=== PATIENT | female | born 1975 | race Caucasian/White ===

== ENCOUNTER 2016-11-29 07:44 | Emergency (ER) | payer BC ==
[2016-11-29 07:53] VITALS: TEMP 97.9
[2016-11-29] MEDS ORDERED: HYDROmorphone 1 MG/ML 1 ML SYRINGE IVP STA ×3 (08:11→11:41)
[2016-11-29] MEDS ORDERED: ONDANSETRON 4 MG/2 ML VIAL IVP STA (08:11)
[2016-11-29] MEDS ORDERED: KETOROLAC 60 MG/2 ML VIAL IVP STA (08:11)
--- NOTE | 2016-11-29 08:19 | ED ---
General Adult HPI - General Chief complaint: Back Pain/Injury Stated complaint: LEG AND BACK PAIN Time Seen by Provider: 11/29/16 07:50 Source: patient, RN notes reviewed Mode of arrival: ambulatory - History of Present Illness Initial comments: This is a 41-year-old female comes into the emergency room complaining about right-sided lower back pain that radiates all the down her leg into her foot. Patient states her foot is also very tingly. Patient states this started 2 weeks ago and she wasn't doing anything that would cause the pain she wasn't doing any lifting or new exercises. Patient states this happened many years ago and it was called sciatica. Patient states she's had no recent injury or trauma to that area. Patient states she's had no urinary incontinence or retention. Patient denies any numbness of the perineum area. Patient denies any weakness of the leg. Patient states her foot is tingly but she has complete sensation. Patient denies any recent fevers. Patient denies any recent procedures that were done on her. Patient states standing seems to make the pain worse or lying completely flat the problem with lying completely flat however is she cannot stand up - Related Data Home Medications Medication Instructions Recorded Confirmed Loratadine [Claritin] 10 mg PO DAILY 11/29/16 11/29/16 Previous Rx's Medication Instructions Recorded Hydrocodone/Acetaminophen [[place] 1 each PO Q4HR PRN #20 tab 11/29/16 5-325] predniSONE 40 mg PO DAILY #8 tab 11/29/16 Allergies Allergy/AdvReac Type Severity Reaction Status Date / Time Penicillins Allergy Rash/Hives Verified 11/29/16 07:55 Review of Systems ROS Statement: Those systems with pertinent positive or pertinent negative responses have been documented in the HPI. ROS Other: All systems not noted in ROS Statement are negative. Past Medical History Past Medical History: No Reported History History of Any Multi-Drug Resistant Organisms: None Reported Additional Past Surgical History / Comment(s): cyst removed from "tailbone" Past Psychological History: No Psychological Hx Reported Smoking Status: Former smoker Past Alcohol Use History: None Reported Past Drug Use History: None Reported General Exam - General Exam Comments Initial Comments: GENERAL: Patient is well-developed and well-nourished. Patient is nontoxic and well- hydrated and is in moderate distress. ENT: Neck is soft and supple. No significant lymphadenopathy is noted. Oropharynx is clear. Moist mucous membranes. Neck has full range of motion without eliciting any pain. EYES: The sclera were anicteric and conjunctiva were pink and moist. Extraocular movements were intact and pupils were equal round and reactive to light. Eyelids were unremarkable. PULMONARY: Unlabored respirations. Good breath sounds bilaterally. No audible rales rhonchi or wheezing was noted. CARDIOVASCULAR: There is a regular rate and rhythm without any murmurs gallops or rubs. ABDOMEN: Soft and nontender with normal bowel sounds. No palpable organomegaly was noted. There is no palpable pulsatile mass. SKIN: Skin is clear with no lesions or rashes and otherwise unremarkable. NEUROLOGIC: Patient is alert and oriented x3. Cranial nerves II through XII are grossly intact. Motor and sensory are also intact. Normal speech, volume and content. Symmetrical smile. Patient has straight leg test positive on the right at about 30. Perineum exam has normal sensation MUSCULOSKELETAL: Normal extremities with adequate strength and full range of motion. No lower extremity swelling or edema. No calf tenderness. LYMPHATICS: No significant lymphadenopathy is noted PSYCHIATRIC: Normal psychiatric evaluation. Course Vital Signs 11/29/16 11/29/16 07:48 10:43 Temperature 97.9 F Pulse Rate 104 H 68 Respiratory 18 14 Rate Blood Pressure 188/91 134/76 O2 Sat by Pulse 99 94 L Oximetry Medical Decision Making - Medical Decision Making Computed tomography scan shows some mild disc protrusion but no impingement upon the spinal cord or nerves. Patient received pain medicine emergency department and was feeling better did not pain-free. Disposition Clinical Impression: Sciatica Disposition: HOME SELF-CARE Instructions: Sciatica (ED) Prescriptions: Hydrocodone/Acetaminophen [[place] 5-325] 1 each PO Q4HR PRN #20 tab PRN Reason: Pain predniSONE 40 mg PO DAILY #8 tab Referrals: None,Stated [Primary Care Provider] - 1-2 days
[2016-11-29] MEDS ORDERED: methylPREDNISolone SOD SUCCI 125 MG/2 ML VIAL IV STA (08:20)
--- NOTE | 2016-11-29 09:26 | XR ---
EXAMINATION TYPE: XR lumbar spine 2 or 3V DATE OF EXAM: 11/29/2016 8:50 AM COMPARISON: NONE HISTORY: Back pain 2 weeks TECHNIQUE: 3 view lumbar spine FINDINGS: 5 lumbar-type vertebral bodies are present. Pedicles are intact. Disc height and vertebral body heights are preserved. IMPRESSION: Normal three-view lumbar spine
--- NOTE | 2016-11-29 10:33 | CT ---
EXAMINATION TYPE: CT lumbar spine wo con DATE OF EXAM: 11/29/2016 10:23 AM COMPARISON: NONE HISTORY: low back pain and Lt leg pain CT DLP: 1194.5 mGycm CONTRAST: None TECHNIQUE: CT of the lumbar spine is performed on a spiral scan at 3 mm thick sections. Reconstructed images are performed in the coronal and sagittal planes. FINDINGS: T12-L1: No focal disc herniation or significant disc bulge is evident. No spinal canal stenosis or neural foraminal stenosis is present. L1-L2: No focal disc herniation or significant disc bulge is evident. No spinal canal stenosis or n eural foraminal stenosis is present L2-L3: Mild disc bulging is anterior thecal sac flattening. No AP spinal canal stenosis is present. N eural foramen are patent. L3-L4: Minimal disc bulging with anterior thecal sac contact. No AP spinal canal stenosis or neural f oraminal stenosis is present. L4-L5: Mild disc bulging is anterior thecal sac flattening. No AP spinal canal stenosis or neural for aminal stenosis is present. L5-S1: No focal disc herniation or significant disc bulge is evident. No spinal canal stenosis or n eural foraminal stenosis is present Vertebral alignment appears normal. IMPRESSION: Mild disc bulging mid lumbar spine with mild anterior thecal sac compression. No nerve root impingeme nt or spinal canal stenosis is evident.
[2016-11-29 13:08] VITALS: BP 138/79; PULSE 75; RESP 18
== END 2016-11-29 13:05 | disposition home or self-care (01) ==
LOC: EC 07:44
DX: M54.30 Sciatica, unspecified side (principal); Z79.899 Other long term (current) drug therapy; Z88.0 Allergy status to penicillin; Z87.891 Personal history of nicotine dependence
CPT/HCPCS: 72100; 72131; 96374; 96376; 96375 ×3; 99284; J2930; J2405; J1885; J1170

== ENCOUNTER → 2017-01-15 | Outpatient (CLI) | payer BC ==
[2017-01-15 13:05] VITALS: BP 148/96; RESP 18; TEMP 98
[2017-01-15 13:31] VITALS: PULSE 98
--- NOTE | 2017-01-15 13:59 | P.CONS ---
History of Present Illness - Reason for Consult Consult date: 01/15/17 - History of Present Illness The initial consultation visit for this 41 years old female with 2 month history of severe low back pain with radiation to the right lower extremity, associated with numbness and tingling sensation, she reported the pain started after she was doing exercise at home, and she denies any history of heavy lifting or accident, the pain started to the low back area radicular the right buttock and then goes to the right lower extremity associated with numbness and tingling sensation , she feels that her right lower extremity weaker than the left, she tried multiple medications without any significant benefit, and she started recently on physical therapy and she can only 4 sessions of physical therapy, she uses NSAIDs and [place] hasn't tried massage, chiropractors without any benefit, she denies any fever or night sweats, Past Medical History Past Medical History: No Reported History History of Any Multi-Drug Resistant Organisms: None Reported Additional Past Surgical History / Comment(s): cyst removed from "tailbone" Past Psychological History: No Psychological Hx Reported Smoking Status: Former smoker Past Alcohol Use History: None Reported Past Drug Use History: None Reported Medications and Allergies Home Medications Medication Instructions Recorded Confirmed Type Loratadine [Claritin] 10 mg PO DAILY 11/29/16 11/29/16 History Gabapentin [Neurontin] 100 mg PO Q8HR 01/15/17 01/15/17 History Ibuprofen [Motrin] 800 mg PO Q8HR PRN 01/15/17 01/15/17 History Stool Softener 1 tab PO DAILY 01/15/17 History oxyCODONE ER [OxyCONTIN] 15 mg PO Q6HR PRN 01/15/17 01/15/17 History Allergies Allergy/AdvReac Type Severity Reaction Status Date / Time Penicillins Allergy Rash/Hives Verified 01/15/17 12:37 Physical Exam Vitals: Vital Signs Temp Pulse Resp BP 01/15/17 12:55 98.0 F 98 18 148/96 Intake and Output 01/14/17 01/15/17 01/15/17 22:59 06:59 14:59 Other: Weight 110.677 kg Patient Weight 01/16/17 06:59 Weight 110.677 kg Social history : not smoker , NO ETOH , NO Illegal drugs use . Review of Systems : 1- Constitutional : no chills , no fever , no night sweats , 2- Ears : no ear discharge , no change in hearing 3-Nose, Mouth ,Throat ; no bleeding gums, no sore throat , no epistaxis , 4-Cardiovascular : Denies chest pain, , no orthopnea , no palpitation 5-Respiratory : Denies cough , no dyspnea , no hemoptysis 6-Gastrointestinal :, no change in bowel habits , no coffee- ground emesis . 7-Genitourinary : No hematuria , no discharge , no incontinence, 8-Musculoskeletal : No gait dysfunction , report low back pain , 9- Neurological : no ataxia , no tremor , no sezure , 10-Psychatric , no suicidal ideation no hallucination 11- Endocrine : no cold intolerence , no polyuria , no polydypsia , 12-Hematologic : no easy bleeding , no easy brusing , 13-Allergic / immunology : no angioedema , no wheezing ,no allergic rhinitis 14-Integumentary : no brttle nails , no change hair / nails , no foot/leg ulcers . Physical Examinations : 1-Constitutional : Cooperative , not in acute distress . 2-HEENT : nech ; supple , no Lymphadenopathy , no Thyromegaly , :eyes , no icterus, no photophobia . ENT : , normal oropharynx , no Thrush 3- Respiratory : Chest clear to auscultations Bilaterally , no wheezing . 4- Cardiovascular : regular rate and rhythem , S1 , S2 , no S3 , no S4. 5- Gastrointestinal: abdomen soft no tenderness , no organomegally . 6- Genitourinary : Defferred . 7-Integumentary : No cellulitis , no ulcers , normal skin turgor , no cyanotic . 8- neurologic : Cranial nerve II to XII intact , no focal neurological deffecit 9-psychatric : alert , oriented X 3 , appropriate affect , intact judgment and insight . 10-Lymphatic : no Lymphadenopathy. 11- musculoskeltal: Antalgic gait exams of the Lumber spine = moter stegnth lower extremities , thigh and legs 3-4/5 Right side , 5/5 Left side deep tendon reflexes : Decreased right Knee Jerk , normal ankle Jerk negative lumber facet Loading Test Range of motion of the lumbar spine Flexion 30 degrees, extension 30 degrees strait leg raising test , positive at 30 degree on the right side ,and its negative on the left side Fabere test positive RT and negative LT . Results Comments: CT Scan of the lumbar spine= mild bulging disc disease at L2-3/L3/L4 5 Assessment and Plan Plan: Assessment and plan = - Lumbar radiculopathy/ lumbar bulging disc disease - diagnoses, prognosis, and treatment options including but not limited to physical therapy, surgical interventions, interventional therapies and medication management including narcotics and adjuvant medication were discussed with the patient and all questions answered to the patient's satisfaction. -medication refile =1-start patient on Motrin 800 mg every 8 hours when necessary for pain 2-start patient on Neurontin 100 mg every 8 hours for 1 week and then it will be increased to 200 mg every 8 hours after 1 week, patient should continue oxycodone 15 mg every 6 hours she is already getting prescription for it from her primary care doctor Nate -procedure= patient could benefit from lumbar epidural steroid injections under fluoroscopy guidance right paramedian approach. Time with Patient: Greater than 30
== END | disposition home or self-care (01) ==
LOC: PNWHC3 12:20
PROVIDERS: ATTEND Specialist
DX: M51.16 Intervertebral disc disorders with radiculopathy, lumbar region (principal); M54.31 Sciatica, right side
CPT/HCPCS: 99211

== ENCOUNTER 2017-01-17 08:21 | Day surgery (SDC) | payer BC ==
[2017-01-16 11:11] VITALS: BMI 40.6
[2017-01-17 08:41] VITALS: RESP 16; TEMP 97.5
[2017-01-17] MEDS ORDERED: LACTATED RINGERS 1,000 ML IV ONE (09:09)
[2017-01-17] MEDS ORDERED: IOHEXOL 180 MG/ML 1 ML ML ONE (09:10)
[2017-01-17] MEDS ORDERED: MIDAZOLAM 2 MG/2 ML VIAL ONE (09:10)
[2017-01-17] MEDS ORDERED: TRIAMCINOLONE ACETONIDE 40 MG/ML 1 ML VIAL ONE (09:10)
[2017-01-17] MEDS ORDERED: fentaNYL (PF) 50 MCG/ML 2 ML AMP ONE (09:10)
--- NOTE | 2017-01-17 09:44 | P.PCN ---
Date of Procedure: 01/17/17 Procedure(s) Performed: PREOPERATIVE DIAGNOSIS: 1- Lumbar herniated/bulging Disc Diseases 2-Lumbar Radiculopathy POSTOPERATIVE DIAGNOSIS: 1-Lumber herniated/bulging Disc Diseases 2-Lumbar Radiculopathy PROCEDURE 1. Lumbar epidural steroid injection under fluoroscopic guidance at the L4-5 level. (Right paramedian approach) 2. Lumbar epidurogram. ANESTHESIA: Local with 1% lidocaine 3 ml and IV sedation with Versed 4 mg , and fentanyle 100 Mcg EBL: Minimal PROCEDURE INDICATION: The patient with low back pain and radiculitis symptoms unresponsive to conservative treatment. Fluoroscopy was used to optimize visualization of the needle placement and to maximize safety. PROCEDURE DESCRIPTION / TECHNIQUE: The patient was seen and identified in the preoperative area. Risks, benefits , complications including but not limited to infections ,bleeding ,allergic reaction to the medications ,nerve damage and not complete pain releife , and alternatives were discussed with the patient. The patient agreed to proceed with the procedure and signed the consent. IV was started, and vital signs were stable. Patient was taken to the OR and time out was completed. The patient was placed in the prone position on procedure table and a pillow was placed under the abdomen to reduce lumbar lordosis. The lumbosacral area was prepped and draped in the usual sterile fashion.ere closely monitored during the procedure. Conscious sedation was used during the procedure to decrease patients anxiety. Vital signs was monitered during the entire procedure. Using anterior-posterior fluoroscopy, the L4-5 interlaminar space was identified and the skin over this site was marked and then infiltrated with 1% lidocaine subcutaneously. Subsequently, a 18-gauge Tuohy epidural needle was inserted and advanced toward the epidural space using the ``Loss of resistance technique and guided by AP and lateral fluoroscopy. The correct needle position in the epidural space was verified with the injection of 2 mL of the water soluble contrast dye Omnipaque 180 contrast and observing an excellent epidurogram with the epidural spread of the dye, after negative aspiration for blood and CSF and in the absence of paresthesias. Again after negative aspiration, a 6 ml mixture containing 80 mg of Kenalog and 2 ml of preservative free Normal Saline, and 2 ml of preservative free lidocaine 1% solution was injected and a washout of epidurogram was seen. Needle was withdrawn intact, skin was cleansed, and bandages were applied. COMPLICATIONS: None DISPOSITION / PLANS: The patient was placed in a supine position and transferred to the recovery area in a stable condition for observation. There was no evidence of lower extremity motor or sensory deficit after the procedure. Patient was discharged from the recovery room after meeting discharge criteria. Home discharge instructions were given to the patient by the staff. The patient was reexamined prior to discharge. The patient will schedule a follow up in the clinic in 2-4 weeks.
[2017-01-17 10:02] VITALS: BP 135/84; PULSE 72
[2017-01-17] MEDS ORDERED: IV FLUID CONTINUATION 1,000 ML IV ONE (10:02)
--- NOTE | 2017-01-17 13:14 | FL ---
EXAMINATION TYPE: FL guided pain mgmt statistic DATE OF EXAM: 01/17/2017 9:42 AM FLUOROSCOPY Fluoroscopy time of 6 seconds was used during lumbar epidural steroid injection. 1 image/s document/ s the procedure.
== END 2017-01-17 10:09 | disposition home or self-care (01) ==
LOC: ORPAIN 08:21
PROVIDERS: ATTEND Specialist
DX: M51.16 Intervertebral disc disorders with radiculopathy, lumbar region (principal)
CPT/HCPCS: 81025; 62323; 99152; J2250; J3301; Q9965; J3010

== ENCOUNTER 2017-02-21 06:15 | Day surgery (SDC) | payer BC ==
[2017-02-20 08:35] VITALS: BMI 39.9
[~2017-02-21 06:15] MED LIST: LACTATED RINGERS 1,000 ML IV SCH
[2017-02-21 06:53] VITALS: RESP 16; TEMP 96.4
[2017-02-21] MEDS ORDERED: LIDOCAINE 1% 20 ML VIAL (10MG/ML) FOR IV START SQ ONE (07:06)
[2017-02-21] MEDS ORDERED: IOHEXOL 180 MG/ML 1 ML ML ONE (07:41)
[2017-02-21] MEDS ORDERED: TRIAMCINOLONE ACETONIDE 40 MG/ML 1 ML VIAL ONE (07:41)
[2017-02-21] MEDS ORDERED: fentaNYL (PF) 50 MCG/ML 2 ML AMP ONE (07:41)
[2017-02-21] MEDS ORDERED: MIDAZOLAM 2 MG/2 ML VIAL ONE (07:41)
--- NOTE | 2017-02-21 08:10 | P.PCN ---
Date of Procedure: 02/21/17 Procedure(s) Performed: PREOPERATIVE DIAGNOSIS: 1- Lumbar her Disc Diseases 2-Lumbar radiculopathy POSTOPERATIVE DIAGNOSIS: 1-Lumber herniated Disc Diseases 2-Lumbar radiculopathy PROCEDURE 1. Lumbar epidural steroid injection under fluoroscopic guidance at the L4-5 level. 2. Lumbar epidurogram. ANESTHESIA: Local with 1% lidocaine 3 ml and IV sedation with Versed 2 mg , and fentanyle 100 Mcg EBL: Minimal PROCEDURE INDICATION: The patient with low back pain and radiculitis symptoms unresponsive to conservative treatment. Fluoroscopy was used to optimize visualization of the needle placement and to maximize safety. PROCEDURE DESCRIPTION / TECHNIQUE: The patient was seen and identified in the preoperative area. Risks, benefits , complications including but not limited to infections ,bleeding ,allergic reaction to the medications ,nerve damage and not complete pain releife , and alternatives were discussed with the patient. The patient agreed to proceed with the procedure and signed the consent. IV was started, and vital signs were stable. Patient was taken to the OR and time out was completed. The patient was placed in the prone position on procedure table and a pillow was placed under the abdomen to reduce lumbar lordosis. The lumbosacral area was prepped and draped in the usual sterile fashion.ere closely monitored during the procedure. Conscious sedation was used during the procedure to decrease patients anxiety. Vital signs was monitered during the entire procedure. Using anterior-posterior fluoroscopy, the L4-5 interlaminar space was identified and the skin over this site was marked and then infiltrated with 1% lidocaine subcutaneously. Subsequently, a 20-gauge Tuohy epidural needle was inserted and advanced toward the epidural space using the ``Loss of resistance technique and guided by AP and lateral fluoroscopy. The correct needle position in the epidural space was verified with the injection of 2 mL of the water soluble contrast dye Omnipaque 180 contrast and observing an excellent epidurogram with the epidural spread of the dye, after negative aspiration for blood and CSF and in the absence of paresthesias. Again after negative aspiration, a 6 ml mixture containing 80 mg of Kenalog and 2 ml of preservative free Normal Saline, and 2 ml of preservative free lidocaine 1% solution was injected and a washout of epidurogram was seen. Needle was withdrawn intact, skin was cleansed, and bandages were applied. COMPLICATIONS: None DISPOSITION / PLANS: The patient was placed in a supine position and transferred to the recovery area in a stable condition for observation. There was no evidence of lower extremity motor or sensory deficit after the procedure. Patient was discharged from the recovery room after meeting discharge criteria. Home discharge instructions were given to the patient by the staff. The patient was reexamined prior to discharge. The patient will schedule a follow up in the clinic in 2-4 weeks. Patient given prescription refills for Neurontin 200 mg every 8 hours Motrin 800 mg every 8 hours when necessary for pain, and also patient started on Ultram 50 mg every 8 hours when necessary for pain and he will be started on baclofen 10 mg twice a day for muscle spasm
[2017-02-21] MEDS ORDERED: IV FLUID CONTINUATION 1,000 ML IV ONE ×2 (08:15)
--- NOTE | 2017-02-21 08:20 | FL ---
Fluoroscopy HISTORY: Pain 3 seconds fluoroscopy time supplied to the referring clinician. 2 intraoperative C-arm images docume nt the procedure. See dictated report from anesthesia.
[2017-02-21 08:32] VITALS: BP 122/76; PULSE 89
== END 2017-02-21 08:45 | disposition home or self-care (01) ==
LOC: ORPAIN 06:15
PROVIDERS: ATTEND Specialist
DX: M51.16 Intervertebral disc disorders with radiculopathy, lumbar region (principal); Z88.0 Allergy status to penicillin
CPT/HCPCS: 99152; 62323; J2250; J3301; Q9965; J3010

== ENCOUNTER → 2017-04-15 | Outpatient (CLI) | payer BC ==
[2017-04-15 14:42] VITALS: BP 146/94; PULSE 108; RESP 16; TEMP 98.2
--- NOTE | 2017-04-15 15:19 | P.PN ---
Subjective This is follow-up visit for this patient with a history of severe and chronic low back pain secondary to lumbar Herniated disc diseases , lumbar radiculopathy, we have done interventional pain management injection,, number epidural steroid injections 2 , and she reports her pain improved but she continued to have severe low back pain with radiation to the right lower extremity associated with numbness and tingling sensation, she is currently on Neurontin 100 mg 2 tablets every 8 hours , Motrin 800 mg every 8 hours and Ultram 50 mg every 8 hours when necessary, and baclofen 10 mg twice a day, she denies any excessive drowsiness or sleepiness, she denies any fever or night sweats she denies any motor or sensory deficit, but she reported that since she started the Neurontin she realizes that there is swelling in her lower extremity , Objective - Vital Signs Vital signs: Vital Signs Temp 98.2 F 04/15/17 14:30 Pulse 108 H 04/15/17 14:30 Resp 16 04/15/17 14:30 BP 146/94 04/15/17 14:30 Pulse Ox Intake & Output 04/14/17 04/15/17 04/15/17 18:59 06:59 18:59 Weight 108.862 kg - Exam Physical Examinations : 1-Constitutiona : Cooperative , not in acute distress . 2-HEENT : nech ; supple , no Lymphadenopathy , normal thyroid size . eyes : no ptosis , no icterus, no photophobia . ENT : normal of hearing , normal oropharynx , no Thrush . 3- Respiratory : Chest clear to auscultations Bilaterally , no wheezing , no Rhonchi . 4- Cardiovascular : regular rate and rhythem , S1 , S2 , no S3 , no S4. 5- Gastrointestinal : abdomen soft no tenderness , bowel sounds positive all four quadrents , no organomegally . 6- Genitourinary : Defferred . 7- neurologic : Cranial nerve II to XII intact , no focal neurological deffecit . 8-psychatric : alert , oriented X 3 , appropriate affect , intact judgment and insight . 9-Lymphatic : no Lymphadenopathy . 10- musculoskeltal : , Lumber spine = normal moter stegnth lower extremities ,thigh and legs .5/5 left , 4/5 right deep tendon reflexes : normal Knee Jerk , normal ankle Jerk . lumber facet Loading Test negative bilaterally strait leg raising test positive at 30 degree , RT , negative LT , Fabere test positive RT and negative LT . Assessment and Plan Plan: Assessment and plan= - lumbar herniated disc disease , lumbar radiculopathy Pain improved after the lumbar epidural steroid injections, and could benefit from another lumbar epidural steroid injections. Patient had side effects from Neurontin (swelling in her feet ) I will start patient on Lyrica 25 mg 3 times a day, discontinue Neurontin, continue Motrin 800 mg every 8 hours continue 50 mg every 8 hours when necessary , continue baclofen 10 mg twice a day Time with Patient: Less than 30
== END ==
LOC: PNWHC3 14:01
PROVIDERS: ATTEND Specialist
DX: M51.16 Intervertebral disc disorders with radiculopathy, lumbar region (principal); G89.29 Other chronic pain; Z79.891 Long term (current) use of opiate analgesic
CPT/HCPCS: 99211

== ENCOUNTER 2017-05-27 06:49 | Day surgery (SDC) | payer BC ==
[2017-05-27 07:32] VITALS: TEMP 98
[2017-05-27] MEDS ORDERED: LACTATED RINGERS 1,000 ML IV ONE (07:42)
[2017-05-27] MEDS ORDERED: LIDOCAINE 1% 20 ML VIAL (10MG/ML) FOR IV START INTRADERMA ONE (07:43)
[2017-05-27 07:52] LABS: Glucose,Whole Blood 120 mg/dL (75-99)
[2017-05-27] MEDS ORDERED: IV FLUID CONTINUATION 1,000 ML IV ONE (08:03)
--- NOTE | 2017-05-27 08:04 | P.PCN ---
Date of Procedure: 05/27/17 Preoperative Diagnosis: Lumbar Radiculopathy Postoperative Diagnosis: Same As above Procedure(s) Performed: Lumbar epidural steroid injection under fluoroscopic guidance in the interlaminar approach Implants: Anesthesia: other (Moderate sedation) Surgeon: Fercho Bruno Pathology: none sent Condition: stable Disposition: PACU Indications for Procedure: Operative Findings: Description of Procedure: The patient was seen in the preop holding area consent was obtained then she was brought into the procedure room and placed in prone position. Skin was prepped with Betadine 3 and draped in a sterile manner. Lidocaine 1% was used to numb the skin up at the target point that was at the L4-5 level in the right paramedian approach. I used a 20-gauge 3-1/2 inch Touhy epidural needle with [id number] to air to identify the epidural space. There was positive [id number] to air at about 9 cm from skin negative aspiration for any CSF or blood and negative paresthesia I then injected 1 mL of Omnipaque which showed typical epidurogram with AP and lateral views of fluoroscopy after that I injected 40 mg of Kenalog +2 MLS of Marcaine 0.25% plus preservative free normal saline to a total volume of 7 MLS in epidural space. Patient tolerated procedure well.
[2017-05-27 08:08] VITALS: PULSE 86; RESP 16
--- NOTE | 2017-05-27 08:08 | FL ---
FLUOROSCOPY 4 seconds of fluoroscopy time were utilized during Pain Injection. 2 images document the procedure.
[2017-05-27 08:26] VITALS: BP 120/83
== END 2017-05-27 08:51 | disposition home or self-care (01) ==
LOC: ORPAIN 06:49
PROVIDERS: ATTEND Anesthesiology
DX: M54.16 Radiculopathy, lumbar region (principal); Z79.1 Long term (current) use of non-steroidal anti-inflammatories (NSAID); Z79.891 Long term (current) use of opiate analgesic; Z88.0 Allergy status to penicillin
CPT/HCPCS: 81025; 62323; J2250; J3301; Q9965; J3010; 99152

== ENCOUNTER → 2017-06-05 | Outpatient (CLI) | payer BC ==
[2017-06-05 12:56] VITALS: BP 134/83; PULSE 93; RESP 16; TEMP 97.2
--- NOTE | 2017-06-05 13:12 | P.PN ---
Progress Note - Text This is a 41-year-old female with history of lumbar radiculopathy. The patient just finished a series of 3 lumbar epidural steroid injections and her pain is 90% better than before these injections as she states. She still has very slight pain in the back of her left thigh ,burning in quality. She takes Cymbalta 30 mg once a day and Motrin 800 mg once to twice a day for her pain now. I will give her prescription for these 2 medications and we'll see her 3 months from now.
== END | disposition home or self-care (01) ==
LOC: PNWHC3 12:39
PROVIDERS: ATTEND Anesthesiology
DX: M54.16 Radiculopathy, lumbar region (principal)
CPT/HCPCS: 99211

== ENCOUNTER → 2017-11-20 | Outpatient (CLI) | payer BC ==
[2017-11-20 13:16] VITALS: BP 131/94; PULSE 89; RESP 18; TEMP 98.7
--- NOTE | 2017-11-20 13:38 | P.PN ---
Progress Note - Text Progress Note Date: 11/20/17 Patient returns for followup for chronic back pain with radiation to legs. Patient recently underwent LESI series over the summer and pain is still at 1-2/ 10 with medications, including rare tramadol, baclofen, ibuprofen, duloxetine regimen. Patient denies adverse drug effects from medications. Today, pt denies new-onset weakness, bowel/bladder incontinence, or any other signs or symptoms of cauda equina syndrome. There are no signs of acute intoxication, and no indications of medication diversion or overuse. In addition to above, 13-point review of systems is also negative for chest pain , shortness of breath, changes in vision, changes in hearing, new onset weakness , abdominal pain, diarrhea, extreme fatigue, malaise, fever, skin changes, homicidal or suicidal ideation, or bowel or bladder incontinence. Vital Signs: Reviewed in EMR Gen: WDWN, AAOx3, NAD HEENT: NCAT, EOMI, hearing grossly normal Pulm: resp unlabored Abd: soft, NT, ND Neck: supple, trachea midline ROM in flexion lumbar spine: reduced ROM in extension lumbar spine: reduced Lumbar paravertebral tenderness: + Facet loading: + bilateral SI joint tenderness: + R > L Francisco's test: + R > L Straight leg raise: neg Lower extremity: decreased ROM dorsiflexion/plantarflexion strength, hip flexion/extension, and knee flexion/extension secondary to pain Neuro: CN II-XII grossly intact, muscle strength lower extremities PRESERVED Imaging: Reviewed in EMR Assessment: 1. lumbar radiculitis 2. chronic pain syndrome Plan: 1. Explanation: Opioid and psychological risk scores were reviewed. Diagnoses , prognoses, and multiple treatment options including but not limited to physical therapy, interventional therapies, adjuvant medical therapies, narcotic medication therapies, and surgery were discussed with the patient and all questions were answered to the patient's satisfaction. 2. Opioid agreement: Patient has previously signed narcotic agreement, and was orally counseled to not overuse, abuse, divert, or cell medications, and to take them as prescribed by only 1 healthcare provider. The patient was also counseled to store opioid medications in a safe and preferably locked location. Patient was also counseled against driving or operating heavy equipment while using narcotic medications and also to not use alcohol or any illicit or recreational drugs. The patient verbalized understanding that lack of compliance with any of the above and likely result in failure to renew narcotic prescriptions, possible discharge from the clinic, and possible legal ramifications thereafter if indicated. 3. Counseling: The patient was counseled extensively on BODY MASS INDEX, EXERCISE. Specifically, the patient was instructed regarding the importance of smoking cessation, weight control, and exercise in the context of both chronic pain and overall health. 4. Procedures: none for now 5. Consultations: None 6. Investigations: None 7. Medications: duloxetine/ibuprofen refilled with two extra refills given 8. Disposition: f/u as needed. Patient rarely uses tramadol and has not had a procedure in seven months. We will refer her back to her primary care physician Dr. Sullivan for further medical management, and patient can call for repeat lumbar epidural steroid injection when needed and we will schedule the procedure. PQRS measures: 1-Patient's medications are documented in the chart. 2-Tobacco use is negative 3-Patient has not had a pneumococcal vaccine. 4-Advanced care planning discussed, patient unable to give. 5-Opioid contract signed with the patient. 6-Pain positive, follow-up visit or procedure scheduled 7-Patient's blood pressure measured and documented, and patient will follow up with the primary care due to hypertension. 8-Patient's weight was measured, and body mass index ABOVE the normal limits, and counseling was done. Patient instructed to follow up with PCP. 9-Patient WAS NOT identified as an unhealthy alcohol user.
== END ==
LOC: PNWHC3 12:55
PROVIDERS: ATTEND Anesthesiology
DX: G89.4 Chronic pain syndrome (principal); M54.16 Radiculopathy, lumbar region; Z79.891 Long term (current) use of opiate analgesic; Z79.899 Other long term (current) drug therapy
CPT/HCPCS: 99211

== ENCOUNTER → 2019-05-20 | Outpatient (CLI) | payer BC ==
[2019-05-20 11:09] VITALS: BP 142/91; PULSE 91; RESP 20
--- NOTE | 2019-05-20 21:08 | P.PAINCN ---
History of Present Illness - Reason for Consult Consult date: 05/20/19 - History of Present Illness This is 43 years old female, was seen in our pain clinic at [facility] 2-1/2 years ago, Nicky 10 patient diagnosed with lumbar radiculopathy lumbar bulging disc disease, we have done lumbar epidural steroid injections 3 patient gets excellent pain relief, and she was doing very well until recently when she started feeling, severe low back pain with radiation to the right lower extremity associated with severe numbness and tingling sensation, she denies any fever or night sweats but she denies any change in the bowel movement or urination, and she feels her right lower extremity but weaker on the left side, she is able to ambulate, she uses Motrin 600 mg every 6 hours and Flexeril 10 mg twice a day, she denies any side effect of the medication but she reported that the current medication is not helping enough to control her pain, especially at nighttime she has some difficulty sleeping because of intensity of the pain Past Medical History Past Medical History: Eye Disorder Additional Past Medical History / Comment(s): GLAUCOMA. History of Any Multi-Drug Resistant Organisms: None Reported Additional Past Surgical History / Comment(s): cyst removed from "tailbone" Past Anesthesia/Blood Transfusion Reactions: No Reported Reaction Past Psychological History: No Psychological Hx Reported Smoking Status: Former smoker Past Alcohol Use History: None Reported Additional Past Alcohol Use History / Comment(s): QUIT SMOKING 2008 Past Drug Use History: None Reported - Past Family History Father Family Medical History: Cancer Medications and Allergies Home Medications Medication Instructions Recorded Confirmed Type Acetaminophen [Tylenol] 650 mg PO Q6H 02/20/17 05/20/19 History Eye Drops 1 drop BOTH EYES HS 04/15/17 05/20/19 History Loratadine [Claritin] 10 mg PO DAILY 04/15/17 05/20/19 History DULoxetine HCL [Cymbalta] 30 mg PO DAILY #30 yarelis. 11/20/17 05/20/19 Rx Cyclobenzaprine [Flexeril] 10 mg PO BID 30 Days #60 tab 05/20/19 Rx Ibuprofen [Motrin] 800 mg PO Q8HR PRN 30 Days #90 tab 05/20/19 Rx traMADol HCL [Ultram] 50 mg PO DAILY PRN 30 Days #30 tab 05/20/19 Rx Allergies Allergy/AdvReac Type Severity Reaction Status Date / Time Penicillins Allergy Rash/Hives Verified 11/20/17 13:09 Physical Exam Vitals: Vital Signs Pulse Resp BP Pulse Ox 05/20/19 10:58 91 20 142/91 95 Intake and Output 05/20/19 05/20/19 05/20/19 06:59 14:59 22:59 Other: Weight 107.501 kg Physical Examinations : -Constitutiona : Cooperative , not in acute distress . -HEENT : nech : supple , no Lymphadenopathy , normal thyroid size . eyes : no ptosis , no icterus, no photophobia . ENT : normal of hearing , normal oropharynx , no Thrush . - Respiratory : Chest clear to auscultations Bilaterally , no wheezing , no Rhonchi . - Cardiovascula : regular rate and rhythem , S1 , S2 , no S3 , no S4. - Gastrointestina : abdomen soft no tenderness , bowel sounds , no organomegally . - Genitourinary : Defferred . - neurologic : Cranial nerve II to XII intact , no focal neurological deffecit . -psychatric : alert , oriented X 3 , appropriate affect , intact judgment and insight . -Lymphatic : no Lymphadenopathy . - musculoskeltal : Lumber spine moter stegnth lower extremities ,thigh and legs 4/5 Right side , 5/5 Left side deep tendon reflexes : normal Knee Jerk , normal ankle Jerk Positive dysesthesia on the right lower extremity lumber facet Loading Test negative bilaterally Range of motion of the lumbar spine Flexion 30 degrees, extension 10 degrees strait leg raising test , positive at 30 on the right side and negative on the left side Fabere test positive RT and negative LT . mild tenderness over the Sacroiliac joint on the R and L sides Results Comments: MRI of the lumbar spine and bulging disc disease Assessment and Plan Plan: Assessment and plan= lumbar radiculopathy, lumbar bulging disc disease Patient will be good candidate to have lumbar epidural steroid injection at L4 5, right paramedian approach Patient should continue Motrin 800 mg every 8 hours when necessary dispense 90 with 1 refill Patient should continue Flexeril 10 mg twice a day when necessary dispense 60 with one refill Patient given prescription for Ultram 50 mg daily at bedtime when necessary for pain, risks and benefits of the opioid discussed with the patient, and she understood, narcotic agreement was signed, Time with Patient: Greater than 30 PQRS Measure Charge Sheet Measure #130: Documentation of Current Meds in Medical Chart: Patient's medications documented in chart Measure #226: Tobacco Use: Screen & Cessation Intervention: Pt not a tobacco user Measure #111: Pneumonia Vaccination: Pneumococcal vaccine NOT administered or previously given Measure #47: Advance Care Plan: Advance care planning discussed & documented, pt chose/unable to give Measure #412: Opioid Treatment Agreement: Documented signed opioid trtmnt agreemnt min once during opioid trtmnt Measure #408: Opioid Therapy Follow-up Evaluation: Patient had f/u eval minimum every 3 months during opioid therapy Measure #317: Preventitive Care & Scrn High Bld Press & F/U: Pre-hypertensive or hypertensive BP documented, pt will f/u with PCP Measure #128: Body Mass Index (BMI) Screening & Follow-up: BMI documented ABOVE normal parameters - f/u documented Measure #131: Pain Assessment & Follow-up: Pain positive & plan documented, Follow-up scheduled Measure #431: Unhealthy Alcohol Use Preventative Care & Scrn: Patient not identified as an unhealthy alcohol user PQRS Narrative: Smoking Status Former smoker Narcotic Agreement Date Signed 04/15/17 Blood Pressure 142/91 Pain Intensity [Bilateral 4 Lower Back] Scale Used Numeric (1 - 10) Hx Alcohol Use (MH) No Home Medications: Ambulatory Orders Acetaminophen [Tylenol] 650 mg PO Q6H 02/20/17 Eye Drops 1 drop BOTH EYES HS 04/15/17 Loratadine [Claritin] 10 mg PO DAILY 04/15/17 DULoxetine HCL [Cymbalta] 30 mg PO DAILY #30 yarelis. 11/20/17 Cyclobenzaprine [Flexeril] 10 mg PO BID 30 Days #60 tab 05/20/19 Ibuprofen [Motrin] 800 mg PO Q8HR PRN 30 Days #90 tab 05/20/19 traMADol HCL [Ultram] 50 mg PO DAILY PRN 30 Days #30 tab 05/20/19
== END | disposition home or self-care (01) ==
LOC: PNWHC3 10:38
PROVIDERS: ATTEND Specialist
DX: M51.16 Intervertebral disc disorders with radiculopathy, lumbar region (principal); Z87.891 Personal history of nicotine dependence; Z79.899 Other long term (current) drug therapy; Z88.0 Allergy status to penicillin
CPT/HCPCS: 99211

== ENCOUNTER → 2019-06-01 | Day surgery (SDC) | payer BC ==
[2019-05-27 11:14] VITALS: BMI 39.6
[~2019-06-01] MED LIST changes: +IV FLUID CONTINUATION 1,000 ML IV ONE; +LACTATED RINGERS 1,000 ML IV ONE; -LACTATED RINGERS 1,000 ML IV SCH; +LIDOCAINE 1% 20 ML VIAL (10MG/ML) FOR IV START INTRADERMA ONE
[2019-06-01 07:17] VITALS: RESP 18; TEMP 97.4
--- NOTE | 2019-06-01 08:25 | P.PCN ---
Date of Procedure: 06/01/19 Procedure(s) Performed: PREOPERATIVE DIAGNOSIS: 1- Lumbar radiculopathy, Lumbar Degenerative Disc Diseases 2-Lumbar spondylosis with Facet arthropathy without myelopathy POSTOPERATIVE DIAGNOSIS: 1-Lumber Degenerative Disc Diseases 2-Lumbar spondylosis with Facet arthropathy without myelopathy PROCEDURE 1. Lumbar epidural steroid injection under fluoroscopic guidance at the L4-5 level using a right paramedian approach 2. Lumbar epidurogram. ANESTHESIA: Local with 1% lidocaine 3 ml, moderate sedation with intravenous Versed and fentanyl Fluoroscopy was used for the procedure and images were saved in the radiology portion of the chart. EBL: Minimal PROCEDURE INDICATION: The patient with low back pain and radiculitis symptoms unresponsive to conservative treatment. Fluoroscopy was used to optimize visualization of the needle placement and to maximize safety. PROCEDURE DESCRIPTION / TECHNIQUE: The patient was seen and identified in the preoperative area. Risks, benefits, complications including but not limited to infections ,bleeding ,allergic reaction to the medications ,nerve damage and incomplete pain releif , and alternatives were discussed with the patient. The patient agreed to proceed with the procedure and signed the consent. IV was started, and vital signs were stable. Patient was taken to the OR and time out was completed. The patient was placed in the prone position on procedure table and a pillow was placed under the abdomen to reduce lumbar lordosis. The lumbosacral area was prepped and draped in the usual sterile fashion. Vitals were closely monitored during the procedure. Conscious sedation was used during the procedure to decrease patients anxiety. Using anterior-posterior fluoroscopy, the L4-5 interlaminar space was identified and the skin over this site was marked and then infiltrated with 1% lidocaine subcutaneously. Subsequently, an 18-gauge 6" Tuohy epidural needle was inserted and advanced toward the epidural space using the loss of resistance technique and guided by AP and lateral/ oblique fluoroscopy. The correct needle position in the epidural space was verified with the injection of 2 mL of the water soluble contrast dye Isovue 200 contrast under live fluoroscopy, observing an excellent epidurogram. Then, after negative aspiration for blood and CSF and in the absence of paresthesias, a 5 ml mixture containing 80 mg of Depo-medrol , 3 ml of preservative free Normal Saline, and 1 ml of preservative free lidocaine 1% solution was injected and a washout epidurogram was seen. Needle was withdrawn intact, skin was cleansed, and bandages were applied. COMPLICATIONS: None DISPOSITION / PLANS: The patient was placed in a supine position and transferred to the recovery area in a stable condition for observation. There was no evidence of lower extremity motor or sensory deficit after the procedure. Patient was discharged from the recovery room after meeting discharge criteria. Home discharge instructions were given to the patient by the staff. The patient will schedule a follow up in the clinic in 2-4 weeks.
[2019-06-01 08:49] VITALS: BP 143/84; PULSE 70
--- NOTE | 2019-06-01 09:56 | FL ---
EXAMINATION TYPE: FL guided pain mgmt statistic DATE OF EXAM: 06/01/2019 FLUOROSCOPY Fluoroscopy time of 7 seconds was used during lumbar epidural injection. 3 image/s document/s the pr ariella.
== END | disposition home or self-care (01) ==
LOC: ORPAIN 06:58
PROVIDERS: ATTEND Anesthesiology
DX: M51.16 Intervertebral disc disorders with radiculopathy, lumbar region (principal); M47.26 Other spondylosis with radiculopathy, lumbar region; H40.9 Unspecified glaucoma; Z88.0 Allergy status to penicillin; Z87.891 Personal history of nicotine dependence; Z79.899 Other long term (current) drug therapy
CPT/HCPCS: 81025; 62323; J2250; J1030; J3010; Q9966; 99152

== ENCOUNTER → 2019-06-29 | Outpatient (CLI) | payer BC ==
[2019-06-29 14:18] VITALS: BP 161/90; PULSE 90; RESP 16
--- NOTE | 2019-06-29 14:29 | P.PN ---
Progress Note - Text Progress Note Date: 06/29/19 This is a follow-up visit for this 43 years old female with a chronic history of severe low back pain with radiation to the right lower extremity, patient diagnosed with lumbar bulging disc disease of lumbar radiculopathy, recently we have done lumbar epidural steroid injection at L4 5 levels right paramedian approach, patient reported that she had significant improvement of her low back pain after the injection, her visual analog scale fluctuates between 2/10 and increases with activity to 6/10, she denies any fever or night sweats she denies any motor or sensory deficits, Physical Examinations : -Constitutiona : Cooperative , not in acute distress . -HEENT : nech : supple , no Lymphadenopathy , normal thyroid size . eyes : no ptosis , no icterus, no photophobi . - musculoskeltal : Lumber spine moter stegnth lower extremities ,thigh and legs 5/5 Right side , 5/5 Left side Assessment and plan= chronic low back pain secondary to lumbar degenerative disc disease , lumbar radiculopathy chronic and current use of high-risk medication (opioids) Patient denies any side effects of the current pain medication and the current treatment/medication helping the patient to do activity of daily living , Diagnoses, prognosis, treatment options, including but not limited to physical therapy, medication management, interventional therapies, and surgery, were discussed with the patient All the questions answered The narcotic consent was signed and patient agreed and understood the side effects and complications of opioid treatment. Patient signed the narcotic agreement, and was orally counseled, not to overuse, not to abuse, not to Divert , not tp sell pain medication, and to take it as prescribed only, Patient was counseled not to drive or operate heavy equipment while using narcotic medication, and advised not to use alcohol or any Illicit drugs while using the narcotis. understanding that lack of compliance with any of the above instructions, will likely to cause discharge from, the pain service, not to renew his narcotic prescriptions MAPS Reviwed and it was apropriate . Medication managements= patient given prescription for Ultram 50 mg every day when necessary pain dispense 30 with one refill Patient will be scheduled to have second lumbar epidural steroid injection at L4 5 levels right paramedian approach ,
== END ==
LOC: PNWHC3 13:12
PROVIDERS: ATTEND Specialist
DX: G89.29 Other chronic pain (principal); M51.16 Intervertebral disc disorders with radiculopathy, lumbar region; Z79.891 Long term (current) use of opiate analgesic
CPT/HCPCS: 99211